=== PATIENT | male | born 1960 | race Caucasian/White ===

== ENCOUNTER 2022-08-09 07:49 | Outpatient (CLI) | payer BC, SELFPAY | END 2022-08-09 07:50 | disposition home or self-care (01) | LOC: OP CLINIC 07:51 | PROVIDERS: PCP Family Medicine; Visit Provider Internal Medicine | DX: Z12.11 Encounter for screening for malignant neoplasm of colon (principal); K63.5 Polyp of colon; Z80.0 Family history of malignant neoplasm of digestive organs | CPT/HCPCS: 45380; 88305; J2250; J3010 ==

== ENCOUNTER 2022-12-03 08:22 | Outpatient (CLI) | payer BC, SELFPAY | END 2022-12-03 08:23 | disposition home or self-care (01) | PROVIDERS: PCP Family Medicine; Visit Provider Family Medicine | DX: Z01.818 Encounter for other preprocedural examination (principal); Z00.00 Encounter for general adult medical examination without abnormal findings; Z13.6 Encounter for screening for cardiovascular disorders; Z12.5 Encounter for screening for malignant neoplasm of prostate; Z13.29 Encounter for screening for other suspected endocrine disorder | CPT/HCPCS: 80053; 80061; 82306; 84153 ==

== ENCOUNTER 2023-11-07 15:05 | Outpatient (CLI) | payer BC, SELFPAY | END 2023-11-07 15:06 | disposition home or self-care (01) | PROVIDERS: PCP Family Medicine; Visit Provider Family Medicine | DX: Z00.00 Encounter for general adult medical examination without abnormal findings (principal); Z13.6 Encounter for screening for cardiovascular disorders; Z12.5 Encounter for screening for malignant neoplasm of prostate | CPT/HCPCS: 80053; 80061; G0103 ==